=== PATIENT | female | born 1955 | race Caucasian/White ===

== ENCOUNTER → 2022-05-09 | Outpatient (CLI) | payer MEDICARE, OTHER | END | disposition home or self-care (01) | LOC: LAB SHORT 15:57 → PLD 15:57 | DX: D22.5 Melanocytic nevi of trunk (principal); L73.8 Other specified follicular disorders | CPT/HCPCS: 88305 ==

== ENCOUNTER → 2022-06-19 | Outpatient (CLI) | payer MEDICARE, OTHER | END | disposition home or self-care (01) | LOC: LAB SHORT 09:02 → PLD 09:02 | DX: D48.5 Neoplasm of uncertain behavior of skin (principal) | CPT/HCPCS: 88305 ==

== ENCOUNTER → 2022-09-16 | Outpatient (CLI) | payer MEDICARE, OTHER | END | disposition home or self-care (01) | LOC: LAB SHORT 12:03 → PLD 12:03 | DX: C44.729 Squamous cell carcinoma of skin of left lower limb, including hip (principal) | CPT/HCPCS: 88305 ==

== ENCOUNTER → 2022-10-09 | Outpatient (CLI) | payer MEDICARE, OTHER | LOC: PLD 14:40 → LAB 14:40 → LAB SHORT 14:40 | DX: C44.719 Basal cell carcinoma of skin of left lower limb, including hip (principal) | CPT/HCPCS: 88305 ==

== ENCOUNTER → 2023-02-18 | Outpatient (CLI) | payer MEDICARE, OTHER | END | disposition home or self-care (01) | LOC: LAB 14:05 → LAB SHORT 14:05 | DX: N39.0 Urinary tract infection, site not specified (principal) | CPT/HCPCS: 87077; 87086; 87186 ==

== ENCOUNTER → 2023-04-03 | Outpatient (CLI) | payer MEDICARE, OTHER ==
[2023-04-11 04:50] LABS: HPV GENOTYPE 16 Not Detected; HPV GENOTYPE 18 Not Detected; HPV HIGH RISK Not Detected; HPV SOURCE Cervical/Vag
== END ==
LOC: LAB 17:03 → LAB SHORT 17:03
PROVIDERS: Obstetrics & Gynecology
DX: Z01.419 Encounter for gynecological examination (general) (routine) without abnormal findings (principal)
CPT/HCPCS: 87624; G0123

== ENCOUNTER → 2023-07-16 | Outpatient (CLI) | payer MEDICARE, OTHER | LOC: LAB SHORT 10:21 → LAB 10:21 | DX: C44.712 Basal cell carcinoma of skin of right lower limb, including hip (principal); L57.0 Actinic keratosis ==

== ENCOUNTER 2024-06-13 14:51 | Emergency (ER) | payer MEDICARE, OTHER ==
[~2024-06-13] VITALS: Ht 182.9 cm; Wt 103.4 kg
[~2024-06-13 14:51] MED LIST: ASPI81CH; ATENOLOL25 MG; ATORVASTATIN CA20 MG; HYDCHL25; JARDIANCE10 MG; PAXIL2010
[2024-06-13 15:32] LABS: BASOPHILS ABSOLUTE AUTO 0.06 K/mm3 (0.00-0.23); BASOPHILS PERCENT AUTO 1 % (0-2); EOSINOPHILS ABSOLUTE AUTO 0.09 K/mm3 (0.00-0.68); EOSINOPHILS PERCENT AUTO 1 % (0-6); Hematocrit 48.7 % (33.0-51.0); Hemoglobin 15.9 g/dL (11.5-16.0); IMMATURE GRAN ABSOLUTE AUTO 0.02 K/mm3 (0.00-0.10); IMMATURE GRAN PERCENT AUTO 0 % (0-1); LYMPHOCYTES ABSOLUTE AUTO 1.85 K/mm3 (0.84-5.20); LYMPHOCYTES PERCENT AUTO 28 % (21-46); MONOCYTES ABSOLUTE AUTO 0.58 K/mm3 (0.16-1.47); MONOCYTES PERCENT AUTO 9 % (4-13); Mean Corpuscular HGB 27.8 pg (26.0-34.0); Mean Corpuscular HGB Conc 32.6 g/dL (31.5-36.5); Mean Corpuscular Volume 85 fL (80-100); Mean Platelet Volume 10.3 fL (9.1-12.4); NEUTROPHILS ABSOLUTE AUTO 3.95 K/mm3 (1.96-9.15); NEUTROPHILS PERCENT AUTO 60 % (41-73); Platelet Count 221 K/mm3 (150-400); RDW Coefficient Variation 14.5 % (11.7-14.2); RDW Standard Deviation 45.1 fL (35.1-46.3); Red Blood Cell Count 5.72 M/mm3 (3.80-5.20); White Blood Cell Count 6.55 K/mm3 (4.00-11.30)
[2024-06-13 15:56] LABS: Albumin, Blood 3.9 g/dL (3.4-5.0); Albumin/Globulin Ratio 1.1 (0.8-1.8); Bilirubin, Total 0.3 mg/dL (0.1-1.0); Bun/Creatinine Ratio 24.5 (12.0-20.0); Calcium, Blood 9.5 mg/dL (8.5-10.1); Creatinine, Blood 1.06 mg/dL (0.40-1.00); Globulin, Blood 3.6 g/dL (2.2-4.0); Magnesium, Blood 2.2 mg/dL (1.6-2.4); Potassium, Blood 3.4 mmol/L (3.5-5.5); Total Protein, Blood 7.5 g/dL (6.4-8.2)
[2024-06-13 17:00] VITALS: BP 135/80
== END 2024-06-13 17:15 | disposition home or self-care (01) ==
LOC: ER 14:51
PROVIDERS: Physician Assistant
DX: I48.91 Unspecified atrial fibrillation (principal); Z88.2 Allergy status to sulfonamides; Z79.82 Long term (current) use of aspirin; Z79.84 Long term (current) use of oral hypoglycemic drugs; Z79.899 Other long term (current) drug therapy; Z59.89 Other problems related to housing and economic circumstances
CPT/HCPCS: 80053; 83735; 84443; 85025; 93005; 93010; 99285-25

== ENCOUNTER 2024-06-16 16:37 | Emergency (ER) | payer MEDICARE, OTHER ==
[~2024-06-16] VITALS: Ht 182.9 cm; Wt 99.8 kg
[2024-06-16] MEDS ORDERED: Calcium Gluconate 10% 100 MG/ML INJ IV ONE (17:05)
[2024-06-16] MEDS ORDERED: NS 1,000 ML IV SCH (17:05)
[2024-06-16] MEDS ORDERED: Diltiazem HCl 5 MG / ML 5ML Vial IV ONE (17:05)
[2024-06-16 17:56] LABS: BASOPHILS ABSOLUTE AUTO 0.05 K/mm3 (0.00-0.23); BASOPHILS PERCENT AUTO 1 % (0-2); EOSINOPHILS ABSOLUTE AUTO 0.13 K/mm3 (0.00-0.68); EOSINOPHILS PERCENT AUTO 2 % (0-6); Hematocrit 48.4 % (33.0-51.0); Hemoglobin 15.9 g/dL (11.5-16.0); IMMATURE GRAN ABSOLUTE AUTO 0.04 K/mm3 (0.00-0.10); IMMATURE GRAN PERCENT AUTO 1 % (0-1); LYMPHOCYTES ABSOLUTE AUTO 2.21 K/mm3 (0.84-5.20); LYMPHOCYTES PERCENT AUTO 28 % (21-46); MONOCYTES ABSOLUTE AUTO 0.61 K/mm3 (0.16-1.47); MONOCYTES PERCENT AUTO 8 % (4-13); Mean Corpuscular HGB 28.2 pg (26.0-34.0); Mean Corpuscular HGB Conc 32.9 g/dL (31.5-36.5); Mean Corpuscular Volume 86 fL (80-100); Mean Platelet Volume 10.9 fL (9.1-12.4); NEUTROPHILS ABSOLUTE AUTO 4.86 K/mm3 (1.96-9.15); NEUTROPHILS PERCENT AUTO 62 % (41-73); Platelet Count 222 K/mm3 (150-400); RDW Coefficient Variation 14.4 % (11.7-14.2); RDW Standard Deviation 44.6 fL (35.1-46.3); Red Blood Cell Count 5.64 M/mm3 (3.80-5.20)
[2024-06-16 18:39] LABS: Albumin, Blood 4.3 g/dL (3.4-5.0); Albumin/Globulin Ratio 1.3 (0.8-1.8); Bilirubin, Total 0.4 mg/dL (0.1-1.0); Bun/Creatinine Ratio 20.8 (12.0-20.0); Creatinine, Blood 1.25 mg/dL (0.40-1.00); Globulin, Blood 3.4 g/dL (2.2-4.0); Potassium, Blood 3.2 mmol/L (3.5-5.5); Thyroid Stimulating Hormone 4.45 uIU/mL (0.360-4.800); Total Protein, Blood 7.7 g/dL (6.4-8.2)
[2024-06-16 21:15] VITALS: BP 126/75
== END 2024-06-16 21:30 | disposition home or self-care (01) ==
LOC: ER 16:37
PROVIDERS: Emergency Medicine
DX: I48.91 Unspecified atrial fibrillation (principal); Z88.2 Allergy status to sulfonamides; Z79.82 Long term (current) use of aspirin; Z79.899 Other long term (current) drug therapy
CPT/HCPCS: 71045; 80053; 84443; 84484; 85025; 93005; 93010; 96374; 96375; 99285-25; J0612; J7030

== ENCOUNTER → 2024-09-23 | Outpatient (CLI) | payer MEDICARE, OTHER ==
[~2024-09-23] MED LIST changes: +Lopressor 50 mg50 MG PO
== END | disposition home or self-care (01) ==
LOC: LAB SHORT 10:32 → LAB 10:32
PROVIDERS: Obstetrics & Gynecology
DX: Z01.419 Encounter for gynecological examination (general) (routine) without abnormal findings (principal)
CPT/HCPCS: 87624; G0123